=== PATIENT | male | born 1990 | race Hispanic/Latino ===

== ENCOUNTER 2017-01-04 14:05 | Emergency (ER) | payer OTHER ==
[2017-01-04 14:17] VITALS: BP 140/75; PULSE 91; RESP 16; TEMP 98.1; O2SAT 100
[2017-01-04] MEDS ORDERED: TDAP Vaccine 0.5 mL Syr IM ONE (14:36)
--- NOTE | 2017-01-04 15:06 | ED PDOC ---
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 no numbness , weakness distally or other injury. Past Medical History Reviewed: Historical Data, Nursing Documentation, Vital Signs Vital Signs: Last Vital Signs Temp 98.1 F 01/04/17 14:12 Pulse 91 H 01/04/17 14:12 Resp 16 01/04/17 14:12 BP 140/75 01/04/17 14:12 Pulse Ox 100 01/04/17 14:12 - Medical History PMH: No Chronic Diseases - Family History Family History: States: No Known Family Hx - Social History Current smoker - smoking cessation education provided: No Alcohol: None Drugs: Denies - Immunization History Hx Tetanus Toxoid Vaccination: No - Allergies Allergies/Adverse Reactions: Allergies Allergy/AdvReac Type Severity Reaction Status Date / Time No Known Allergies Allergy Verified 01/04/17 14:16 Review of Systems ROS Statement: Except As Marked, All Systems Reviewed And Found Negative Musculoskeletal: Positive for: Hand Pain Physical Exam - Reviewed Nursing Documentation Reviewed: Yes Vital Signs Reviewed: Yes - Physical Exam Appears: Positive for: Well, Non-toxic, No Acute Distress Skin: Positive for: Normal Color, Warm, DRY Extremity: Positive for: Other (R ulnar wrist 2cm superficial lac. no deep structure invovlement. wrist FROM, digits flex/ext 5/5. n/v intact distally. ) Neurologic/Psych: Positive for: Alert, Oriented. Negative for: Motor/Sensory Deficits - ECG O2 Sat by Pulse Oximetry: 100 Procedures - Time-Out Type of Procedure: lac repair Site of Procedure: L wrist - Laceration/Wound Repair Wrist Wound Length (cm): 2 Wound's Depth, Shape: superficial Wound Explored: clean Irrigated w/ Saline (ccs): 500 Wound Repaired With: Steri-strips, Skin adhesive Layer Closure?: No Wound Complexity: Simple Sterile Dressing Applied?: Yes Progress: pt tolerated well. no complications. Disposition - Clinical Impression Clinical Impression: Wrist laceration - Patient ED Disposition Is Patient to be Admitted: No - Disposition Referrals: formerly [facility] [Outside] Disposition: Routine/Home Disposition Time: 15:32 Condition: GOOD Additional Instructions: keep wound clean and dry. cover with dressing daily. glue should fall off on its own in about one week. f/u pmd for further care. Instructions: Laceration (ED) Forms: [facility] ED School/Work Excuse
== END 2017-01-04 15:48 | disposition home or self-care (01) ==
LOC: H.ER 14:05
DX: S61.511A Laceration without foreign body of right wrist, initial encounter (principal); W22.8XXA Striking against or struck by other objects, initial encounter; Y99.0 Civilian activity done for income or pay